=== PATIENT | female | born 1940 | race Caucasian/White ===

== ENCOUNTER 2019-09-06 08:01 | Emergency (ER) | payer MEDICARE ==
[~2019-09-06] VITALS: Ht 152.4 cm; Wt 68.0 kg
--- NOTE | 2019-09-06 08:23 | RAD ---
CT CODE STROKE HEAD WO History: Reason: CODE STROKE / Spl. Instructions: / History: Comparison: September 22, 2009 Technique: Noncontrast CT imaging was performed of the head. Exposure: One or more of the following individualized dose reduction techniques were utilized for this examination: 1. Automated exposure control 2. Adjustment of the mA and/or kV according to patient size 3. Use of iterative reconstruction technique. Findings: Motion degraded examination. No intracranial hemorrhage. No mass effect. No hydrocephalus. Extensive foci of decreased attenuation within hemispheric white matter, most often due to chronic microvascular ischemia and significant weight progressed compared to 2009. Several regions are age indeterminant for ischemia predominantly within the frontal lobes, left greater than right. Mild brain parenchymal volume loss. Intracranial atheromatous calcifications. Chronic right basal ganglia lacunar infarct. Imaged orbits are unremarkable. Imaged paranasal sinuses and mastoid air cells are clear. No acute calvarial fracture. Impression: 1. No acute intracranial hemorrhage. 2. Extensive foci of decreased attenuation within the hemispheric white matter, most often due to chronic microvascular ischemia although several regions are age indeterminant for ischemia. Recommend brain MRI to further evaluate. 3. Chronic right basal ganglia lacunar infarct. FOR INTERNAL CODING PURPOSES Critical result: Findings discussed with Dr. DAVID MO at 09/06/2019 8:20 AM. RESULT CODE: (C) Electronically signed by: Jackson Quiros DO (09/06/2019 8:21 AM) [id number]
[2019-09-06 08:30] LABS: BASO # 0.1 x10^3/uL (0.0-0.2); BASO % 1 % (0-3); EOS % 0 % (0-3); HEMATOCRIT 41.4 % (36.0-47.0); LYMPH % 6 % (24-48); MEAN CORPUSCULAR HEMOGLOBIN 30 pg (25-35); MEAN CORPUSCULAR HGB CONC 34 g/dL (31-37); MEAN CORPUSCULAR VOLUME 89 fL (79-100); MONO # 0.8 x10^3/uL (0.0-1.1); MONO % 5 % (0-9); NEUT # 13.7 x10^3/uL (1.8-7.7); NEUT % 88 % (31-73); PLATELET COUNT 299 x10^3/uL (140-400); RED BLOOD COUNT 4.67 x10^6/uL (3.50-5.40); RED CELL DISTRIBUTION WIDTH 16.1 % (11.5-14.5); WHITE BLOOD COUNT 15.6 x10^3/uL (4.0-11.0)
[2019-09-06 08:42] LABS: PROTHROMBIN TIME PATIENT 13.6 SEC (11.7-14.0)
[2019-09-06] MEDS ORDERED: IV NORMAL SALINE 1000ML BAG 1,000 ML IV ONE (08:45)
[2019-09-06] MEDS ORDERED: ONDANSETRON PF 4 MG/2 ML VIAL. ONE (08:46)
[2019-09-06 08:48] LABS: ALBUMIN 3.3 g/dL (3.4-5.0); ALBUMIN/GLOBULIN RATIO 0.9 (1.0-1.7); CREATININE 1.4 mg/dL (0.6-1.0); GFR 36.2; MAGNESIUM 1.6 mg/dL (1.8-2.4); TOTAL BILIRUBIN 1.9 mg/dL (0.2-1.0)
--- NOTE | 2019-09-06 08:48 | RAD ---
CHEST AP ONLY History: Reason: cough, WEAKNESS / Spl. Instructions: / History: Comparison: July 06, 2007 Findings: Diffuse interstitial thickening with patchy bibasilar opacities. Small right pleural effusion. Enlarged cardiac size. Prior median sternotomy. Impression: 1. Diffuse interstitial thickening with patchy bibasilar opacities, may represent pulmonary edema. 2. Small right pleural effusion. 3. Enlarged cardiac size, may represent cardiomegaly and/or pericardial effusion. Electronically signed by: Jackson Quiros DO (09/06/2019 8:45 AM) [id number]
[2019-09-06 08:50] LABS: POTASSIUM 2.9 mmol/L (3.5-5.1)
--- NOTE | 2019-09-06 08:52 | PHYS DOC ---
General Adult EDM: Chief Complaint: NEURO SYMPTOMS/DEFICITS HPI: HPI: Patient is a 79 year old brought by EMS with a chief complaint of a possible stroke. EMS states that patient was found next to her bed. Is unknown if patient takes a blood thinner. Last known well time is unknown. Currently patient has a left-sided facial droop and is not moving any of her left upper or lower extremities. EMS state that patient is 15 L nonrebreather and is at 92%. EMS state that patient is mildly responsive and is trying to answer questions. EMS does state that patient has been is sick and was not a reliable historian. Review of Systems: Review of Systems: Unable to perform review of systems secondary to patient condition. Heart Score: Risk Factors: Risk Factors: DM, Current or recent (<one month) smoker, HTN, HLP, family history of CAD, obesity. Risk Scores: Score 0 - 3: 2.5% MACE over next 6 weeks - Discharge Home Score 4 - 6: 20.3% MACE over next 6 weeks - Admit for Clinical Observation Score 7 - 10: 72.7% MACE over next 6 weeks - Early Invasive Strategies Current Medications: Current Medications Medications (Trade) Dose Ordered Sig/Prashant Start Time Stop Time Status Last Admin Dose Admin Ondansetron HCl (Zofran) 4 mg STK-MED ONCE 09/06/19 08:46 09/06/19 08:47 DC Sodium Chloride 1,000 ml @ 1,000 mls/hr 1X ONCE 09/06/19 08:45 09/06/19 09:44 Allergies: Allergies: Allergies Coded Allergies Type Severity Reaction Last Updated Verified Unable to Assess 09/06/19 No Physical Exam: PE: Constitutional: Patient is in mild distress HENT: Normocephalic, atraumatic Eyes: Patient not opening her eyes Neck: Supple Cardiovascular: Tachycardia Lungs & Thorax: Bilateral rhonchi Abdomen: Soft. Patient is a belly breather. Extremities: Patient is moving her right upper and right lower extremity. Patient does not move her left upper and left lower extremity. Neurologic: Alert. Patient has complete neglect to the left side. Patient does not open her eyes. Patient has a left-sided facial droop and left-sided facial upper and lower paralysis. Patient does follow commands and squeezes with her right hand and is able to lift up her right leg. Patient does not move her left upper or left lower extremity. Patient tries to move her left lower extremity. NIH scale score is 28 Current Patient Data: Labs: Laboratory Tests Test 09/06/19 08:22 White Blood Count 15.6 x10^3/uL (4.0-11.0) H Red Blood Count 4.67 x10^6/uL (3.50-5.40) Hemoglobin 14.0 g/dL (12.0-15.5) Hematocrit 41.4 % (36.0-47.0) Mean Corpuscular Volume 89 fL (79-100) Mean Corpuscular Hemoglobin 30 pg (25-35) Mean Corpuscular Hemoglobin Concent 34 g/dL (31-37) Red Cell Distribution Width 16.1 % (11.5-14.5) H Platelet Count 299 x10^3/uL (140-400) Neutrophils (%) (Auto) 88 % (31-73) H Lymphocytes (%) (Auto) 6 % (24-48) L Monocytes (%) (Auto) 5 % (0-9) Eosinophils (%) (Auto) 0 % (0-3) Basophils (%) (Auto) 1 % (0-3) Neutrophils # (Auto) 13.7 x10^3/uL (1.8-7.7) H Lymphocytes # (Auto) 1.0 x10^3/uL (1.0-4.8) Monocytes # (Auto) 0.8 x10^3/uL (0.0-1.1) Eosinophils # (Auto) 0.0 x10^3/uL (0.0-0.7) Basophils # (Auto) 0.1 x10^3/uL (0.0-0.2) Platelet Estimate Pending Prothrombin Time 13.6 SEC (11.7-14.0) Prothrombin Time INR 1.1 (0.8-1.1) Activated Partial Thromboplast Time 26 SEC (24-38) Laboratory Tests 09/06/19 08:22 EKG: EKG: EKG interpretation: 8:18 on 09/06/2019 HR: 134 Sinus tachycardia with PVCs Regular intervals Normal axis Nonspecific ST changes Radiology/Procedures: Radiology/Procedures: [] Impression: CT head does not show any acute hemorrhage. CT is does show progressive age and no microvascular disease. Course & Med Decision Making: Course & Med Decision Making Pertinent Labs and Imaging studies reviewed. (See chart for details) Radiologist calls with report that patient CT head does not show any acute hemor rhage. However there is progression of unknown age of her microvascular disease. Patient's lactic acid is 4 Patient's potassium is 2.9. It will be replaced in the ER. I have paged neurology solar project coordination specialist. Awaiting callback. Patient's CODE STATUS is unknown. Patient's NIH scale is 28. Patients last known well is last night. Patient has complete neglect of left side. Initially patient was on a nonrebreather but now patient is on 6 L oxygen and her oxygen saturation is 93% At 1005 I discussed case with neurology on-call. They recommend that we see if [facility] will accept transfer for embolectomy. At 10:15 AM I have discussed case with [facility] neurology attending Dr. marisa Borden who accepts patient for transfer. Critical care: 45 minutes Time is inclusive of interpretation of imaging, interpretation of labs, consultation with other physicians. Patient needed continuous cardiovascular, respiratory, neurologic monitoring secondary to CVA. Davis Disclaimer: Davis Disclaimer: This electronic medical record was generated, in whole or in part, using a voice recognition dictation system. Departure Departure Impression: Primary Impression: CVA (cerebral vascular accident) Disposition: 05 TRANSFER OTHER Condition: CRITICAL DAVID MO DO September 06, 2019 08:52
--- NOTE | 2019-09-06 08:55 | RAD ---
AP view of the pelvis and two-view study of the left hip Clinical indications: Fall and pain. FINDINGS: No acute fracture or dislocation or lytic process is evident. No diastasis of the symphysis pubis or either SI joint is seen. IMPRESSION: No acute fracture. Electronically signed by: Jose Ratliff MD (09/06/2019 8:52 AM) [id number]
[2019-09-06 09:16] LABS: BILIRUBIN,URINE SMALL (NEG); COLOR,URINE YELLOW; NITRITE,URINE NEGATIVE (NEG); PROTEIN,URINE >=300 mg/dL (NEG-TRACE)
[2019-09-06 09:20] LABS: CLARITY,URINE HAZY
[2019-09-06 09:24] LABS: AMORPHOUS SEDIMENT,UR PRESENT /HPF; BACTERIA,URINE MODERATE /HPF (0-FEW); HYALINE CASTS, URINE MODERATE /HPF; SQUAMOUS EPITHELIAL CELL,UR MANY /LPF
[2019-09-06 09:36] LABS: % BANDS 3 % (0-9); % LYMPHS 9 % (24-48); % MONOS 2 % (0-10); % SEGS 86 % (35-66); PLT ESTIMATE ADEQUATE (ADEQUATE)
[2019-09-06] MEDS ORDERED: ONDANSETRON PF 4 MG/2 ML VIAL. IVP ONE (09:45)
[2019-09-06 10:32] VITALS: BP 167/110
[2019-09-06] MEDS ORDERED: POTASSIUM CHLORIDE 10MEQ 100 ML IV SCH (11:00)
--- NOTE | 2019-09-08 07:27 | EKG ---
[facility] [address] [place] [address] Test Date: 2019-09-06 Test Time: 08:18:59 Pat Name: VICTORIANO REYES Department: Room: Gender: F [employer] Operator: : 1940 Requested By: DAVID MO Order Number: [id number] Reading MD: Emmanuel Donovan MD Measurements Intervals [place] Rate: 134 P: 0 OR: 110 QRS: 124 QRSD: 100 T: -59 QT: 318 QTc: 475 Interpretive Statements SVT PVC'S Electronically Signed On 09-08-2019 12:21:25 CDT by Emmanuel Donovan MD
== END 2019-09-06 10:50 | disposition short-term general hospital (02) ==
LOC: ER 08:01
DX: I63.9 Cerebral infarction, unspecified (principal); R29.810 Facial weakness; G89.11 Acute pain due to trauma; R51 Headache; W18.39XA Other fall on same level, initial encounter; Y93.89 Activity, other specified; Y92.89 Other specified places as the place of occurrence of the external cause; Y99.8 Other external cause status
CPT/HCPCS: 36415; 51702; 70450; 71045; 73502; 80053; 81001; 82550; 83605; 83735; 84443; 84484; 85007; 85025; 85610; 85730; 87086; 93005; 96365; 96375; 99291; J2405; J3480; J3490; J7050; U0003; J7030